=== PATIENT | male | born 1960 | race Caucasian/White ===

== ENCOUNTER 2020-01-28 14:39 | Emergency (ER) | payer MEDICARE, SELFPAY ==
[2020-01-28 14:43] VITALS: BP 131/61; PULSE 55; RESP 18; TEMP 36; O2SAT 93
--- NOTE | 2020-01-28 14:46 | ED.RECABL ---
HPI - Recheck/Abnormal Lab/Rx General Chief Complaint: Recheck/Abnormal Lab/Rx Stated Complaint: hypoglycemia Time Seen by Provider: 01/28/20 14:45 Source: patient Mode of arrival: EMS Limitations: no limitations History of Present Illness HPI narrative: Pt is a 60 y/o male who presents to the ED, via EMS, secondary to low BS. Per EMS, pt's BS was 22 upon their arrival. EMS states that they were called by PD after the pt's pinged his phone and was found on the side of the road. The pt was supposed to be going home but since he was late his pinged his phone and called 911. Pt states that he did not loose consciousness and that he pulled over to turn his GPS off. Pt was given glucagon IM by EMS and upon arrival to the ED, pt's BS was 95. He has an insulin pump and gets dialysis every Monday, Monday, and Monday. He is supposed to wear a continuous glucose monitor but he has not put it on yet. He did not eat anything since breakfast. 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 He denies ABD pain, back pain, CP, HOLDEN, or N/V. complaint: other (low BS) Returns today for: other (low BS) Context: other (low BS) Associated symptoms: none Treatments prior to arrival: other (glucagon IM) Related Data Home Medications Medication Instructions Recorded Confirmed aspirin 81 mg PO DAILY 10/09/19 10/09/19 atorvastatin 40 mg PO HS 10/09/19 10/09/19 brinzolamide [Azopt] 1 drp OPHTHALMIC (EYE) BID 10/09/19 10/09/19 cholecalciferol (vitamin D3) 125 mcg PO BID 10/09/19 10/09/19 [Vitamin D3] clopidogrel 75 mg PO DAILY 10/09/19 10/09/19 insulin regular hum U-500 conc See Rx Instructions .ROUTE .COMPLEX 10/09/19 10/09/19 [Humulin R U-500 (Conc) Insulin] latanoprost 1 drp OPHTHALMIC (EYE) QPM 10/09/19 10/09/19 levothyroxine 137 mcg PO DAILY 10/09/19 10/09/19 losartan 100 mg PO DAILY 10/09/19 10/09/19 metolazone 10 mg PO DAILY 10/09/19 10/09/19 [id number]-fish oil [[place]-3 1,000 cap PO DAILY 10/09/19 10/09/19 Fish Oil] omeprazole 40 mg PO BID 10/09/19 10/09/19 spironolactone [Aldactone] 25 mg PO DAILY 10/09/19 10/09/19 sucroferric oxyhydroxide 500 mg PO TID 10/09/19 10/09/19 vitamin B complex 1 cap PO DAILY 10/09/19 10/09/19 Allergies Allergy/AdvReac Type Severity Reaction Status Date / Time prednisone Allergy Unknown Swelling Verified 01/28/20 14:55 Review of Systems Review of Systems: Narrative: CARDIOVASCULAR: Denies chest pain. GASTROINTESTINAL: Denies abdominal pain, nausea, vomiting. MUSCULOSKELETAL: Denies back pain. NEUROLOGIC: Denies headache. All systems reviewed & are unremarkable except as noted in HPI and below PMFSH Past Medical History Medical History (Updated 01/28/20 @ 17:49 by Lashaun Murillo MD) Anemia CAD (coronary artery disease) CHF (congestive heart failure) Chronic hepatitis C with cirrhosis CKD (chronic kidney disease) GERD (gastroesophageal reflux disease) Glaucoma Hemodialysis patient HLD (hyperlipidemia) HTN (hypertension) Hypothyroid IDDM (insulin dependent diabetes mellitus) Peripheral neuropathy Pneumonia Sleep apnea Surgical History Surgical History (Updated 01/28/20 @ 15:48 by Darrick Bridges) H/O bilateral cataract extraction H/O heart artery stent History of cardiac catheterization Social History Social History (Updated 01/28/20 @ 15:49 by Darrick Bridges) Smoking status: Former smoker Exam Narrative: Exam Narrative: GENERAL: Well-appearing, well-nourished, and in no acute distress. HEAD: Normocephalic, atraumatic. EYES: PERRLA and EOMI. ENT: Nares clear, no rhinorrhea or epistaxis. Mucous membranes moist. NECK: Supple. CHEST: Clear to auscultation. No respiratory distress. HEART: Regular rate and rhythm. No murmur heard. Normal peripheral pulses. ABDOMEN: Soft, nontender, nondistended, normal active bowel sounds. Lt insulin pump EXTREMITIES: Normal range of motion. No edema. Lt hemodialysis catheter SKIN: Chronic venous stasis changes bilateral lower extre
[2020-01-28 14:48] LABS: Glucose Point of Care 95 (65-105)
[2020-01-28 15:35] LABS: Glucose Point of Care 64 (65-105)
[2020-01-28 15:47] LABS: Add Urine Microscopic? YES; Appearance Urine Clear (Clear); Bacteria Urine Trace /hpf; Bilirubin Urine Negative (Negative); Blood Urine 2+ (Negative); Color Urine Yellow (Yellow); Glucose Urine UA Negative (Negative); Ketones Urine Negative (Negative); Leukocyte Esterase Ur Trace LEU/UL (Negative); Mucus Urine Rare /lpf; Nitrate Urine Negative (Negative); Protein Urine 2+ mg/dL (Negative); Specific Grav Ur 1.012 (1.001-1.035); Squamous Epithelial Cell Urine Occasional /hpf (Few); Urobilinogen Urine Negative mg/dL (<2.0); WBC Urine 16-20 /hpf
[2020-01-28 16:06] LABS: Hematocrit 35.5 % (42.0-52.0); Hemoglobin 11.4 g/dL (14.0-18.0); Immature Platelet Fraction Pct 0.9 % (0.9-11.2); Mean Corpuscular HGB Conc 32.1 g/dl (32-36); Mean Corpuscular Hemoglobin 31.1 pg (26-34); Mean Platelet Volume 9.3 fl (7.4-10.4); Platelet Count Result 152 k/mm3 (150-375); Red Blood Count 3.66 M/mm3 (4.6-6.20); Red Cell Distribution Width 14.8 % (11.5-14.5); White Blood Count 16.4 K/mm3 (4.5-10.0)
[2020-01-28 16:17] LABS: Blood Urea Nitrogen 46 mg/dL (9-20); Calcium 8.1 mg/dL (8.4-10.2); Carbon Dioxide 26 mmol/L (22-30); Chloride 97 mmol/L (98-107); Estimated CRCL calculation 17 ml/min; Estimated Glomerular Filt Rate 10; Glucose 54 mg/dL (75-110); Potassium 3.5 mmol/L (3.4-5.0); Sodium 143 mmol/L (137-145)
[2020-01-28 16:28] LABS: Band Neutrophils Percent 4 % (0-6); Lymphocytes Absolute Manual 0.82 K/mm3 (1.1-4.5); Monocytes Absolute Manual 0.98 K/mm3 (0.1-0.90); Monocytes Percent Manual 6 % (3-9); Neutrophils Absolute Manual 14.59 K/mm3 (1.3-6.7); Neutrophils Percent Manual 85 % (46-73); Total Cells Counted 100
[2020-01-28 16:29] LABS: Platelet Estimate Adequate (Adequate)
[2020-01-28 16:30] LABS: Anisocytosis 1+ (NORMAL); Hypochromasia 1+ (NORMAL)
[2020-01-28 16:32] LABS: Glucose Point of Care 73 (65-105)
[2020-01-28 17:45] LABS: Glucose Point of Care 133 (65-105)
[2020-01-28 18:14] VITALS: BP 135/61; PULSE 67; RESP 16
== END 2020-01-28 18:30 | disposition home or self-care (01) ==
PROVIDERS: Emergency Provider Emergency Medicine
DX: E11.649 Type 2 diabetes mellitus with hypoglycemia without coma (principal); I25.10 Atherosclerotic heart disease of native coronary artery without angina pectoris; E11.22 Type 2 diabetes mellitus with diabetic chronic kidney disease; I13.0 Hypertensive heart and chronic kidney disease with heart failure and stage 1 through stage 4 chronic kidney disease, or unspecified chronic kidney disease; N18.6 End stage renal disease; I50.9 Heart failure, unspecified; B18.2 Chronic viral hepatitis C; K21.9 Gastro-esophageal reflux disease without esophagitis; Z99.2 Dependence on renal dialysis; E03.9 Hypothyroidism, unspecified; E11.42 Type 2 diabetes mellitus with diabetic polyneuropathy; Z98.42 Cataract extraction status, left eye; Z98.41 Cataract extraction status, right eye; Z87.891 Personal history of nicotine dependence; Z79.4 Long term (current) use of insulin; Z96.41 Presence of insulin pump (external) (internal)
CPT/HCPCS: 36415; 80048; 81001; 82948; 85025; 85055; 87077; 87086; 87088; 87186; 99283

== ENCOUNTER 2020-03-25 22:20 | Inpatient (IN) | payer MEDICARE, SELFPAY ==
--- NOTE | ~2020-03-25 | XR_ITS ---
EXAMINATION: XR chest 2V EXAM DATE: 03/25/2020 23:06 INDICATION: Shortness of breath cough fever. Cellulitis. TECHNIQUE: Frontal and lateral projections of the chest obtained and reviewed. Comparison is made to prior examination from 11/07/2016. FINDINGS: The lungs are clear. There are no pleural effusions. Cardiac silhouette is prominent but magnified on this AP technique. There is no pneumothorax suspected. The bones and soft tissues are unremarkable. There is no significant interval change. IMPRESSION: No acute cardiopulmonary findings. Reviewed, dictated and finalized at location G.
--- NOTE | ~2020-03-25 | CT_ITS ---
EXAMINATION: CT LE RT wo con EXAM DATE: 03/25/2020 23:17 INDICATION: Possible abscess. Right leg cellulitis. TECHNIQUE: Spiral CT right lower extremity was performed without contrast. Axial, coronal and sagit liz images were reviewed. The dose-length product (DLP) for this examination was 1577.94 mGy-cm. Tot al of 2536 images available at 1134 p.m. The exposure was tailored according to patient size (auto mA exposure control), and iterative reconstruction (ASIR) was used as additional dose reduction techniq ue. There is no prior study for comparison. FINDINGS: There is extensive right lower extremity subcutaneous edema, less amount of edema within t he fat planes between the calf musculature. No focal abscess or osseous erosion. There is no knee laila int effusion. Extensive subcutaneous soft tissue dystrophic calcifications, differential diagnosis including venous insufficiency dermatomyositis, CREST, lupus, trauma, chronic graft versus host disease. Could be fro m venous insufficiency given the significantly dilated greater saphenous varicosities. IMPRESSION: 1. Skin thickening, extensive subcutaneous edema. Consider cellulitis. 2. Subcutaneous chronic soft tissue calcifications, could be venous stasis related given the superfi cial varicosities. Reviewed, dictated and finalized at location G. IMPRESSION: 1. Skin thickening, extensive subcutaneous edema. Consider cellulitis. 2. Subcutaneous chronic soft tissue calcifications, could be venous stasis rel ated given the superficial varicosities.
--- NOTE | ~2020-03-25 | US_ITS ---
EXAMINATION: US venous doppler [facility] DATE: 03/26/2020 08:30 INDICATION: Right lower limb swelling. TECHNIQUE: Grayscale ultrasound images without and with compression and Doppler ultrasound images of the bilateral lower extremity veins were obtained. COMPARISON: None. FINDINGS: The visualized portions of right common femoral vein, profunda (deep) femoral vein, femoral vein, pop liteal vein, peroneal veins, posterior tibial veins, and greater saphenous vein outflow are patent. The visualized portions of left common femoral vein, profunda femoral vein, femoral vein, popliteal v ein, peroneal veins, posterior tibial veins, and greater saphenous vein outflow are patent. IMPRESSION: 1. No deep venous thrombosis. Reviewed, dictated and finalized at location A.
[2020-03-25 22:26] VITALS: BP 118/55; PULSE 81; RESP 26; TEMP 37.4; O2SAT 93
--- NOTE | 2020-03-25 22:26 | ED.SKABFB ---
HPI - Skin/Abscess/Foreign Bdy General Chief complaint: Skin/Abscess/Foreign Body Stated complaint: cellulitis Time Seen by Provider: 03/25/20 22:25 History of Present Illness HPI narrative: 60 yo male w/ h/o ESRD on dialysis, DM, CHF, valvular disease presents to the ED complaining of cellulitis. He has had issue with pain, swelling, and redness of the RLE for about the past 10 day. He was prescribed an antibiotic by his PCP, which seemed to help, but when the course ended his symptoms returned. Yesterday he had a fever up to 101. Additionally he had some nausea and vomiting today, which caused him to miss dialysis. He now feels SOB and feels that it is due to volume overload. Related Data Home Medications Medication Instructions Recorded Confirmed aspirin 81 mg PO DAILY 10/09/19 10/09/19 atorvastatin 40 mg PO HS 10/09/19 10/09/19 brinzolamide [Azopt] 1 drp OPHTHALMIC (EYE) BID 10/09/19 10/09/19 cholecalciferol (vitamin D3) 125 mcg PO BID 10/09/19 10/09/19 [Vitamin D3] clopidogrel 75 mg PO DAILY 10/09/19 10/09/19 insulin regular hum U-500 conc See Rx Instructions .ROUTE .COMPLEX 10/09/19 10/09/19 [Humulin R U-500 (Conc) Insulin] latanoprost 1 drp OPHTHALMIC (EYE) QPM 10/09/19 10/09/19 levothyroxine 137 mcg PO DAILY 10/09/19 10/09/19 losartan 100 mg PO DAILY 10/09/19 10/09/19 metolazone 10 mg PO DAILY 10/09/19 10/09/19 [id number]-epa-fish oil [[place]-3 1,000 cap PO DAILY 10/09/19 10/09/19 Fish Oil] omeprazole 40 mg PO BID 10/09/19 10/09/19 spironolactone [Aldactone] 25 mg PO DAILY 10/09/19 10/09/19 sucroferric oxyhydroxide 500 mg PO TID 10/09/19 10/09/19 vitamin B complex 1 cap PO DAILY 10/09/19 10/09/19 Allergies Allergy/AdvReac Type Severity Reaction Status Date / Time prednisone Allergy Unknown Swelling Verified 01/28/20 14:55 Review of Systems Review of Systems: All systems reviewed & are unremarkable except as noted in HPI and below Constitutional: Constitutional: Reports fever(s) Eyes: Eyes: Reports no additional eye complaints Cardiovascular: Cardiovascular: Denies chest pain, Reports leg edema and Reports dyspnea Respiratory: Respiratory: Denies cough and Reports dyspnea Gastrointestinal: Gastrointestinal: Reports nausea and Reports vomiting Integumentary/Breasts: Skin/Breast: Reports skin ulcer Neurologic: Reports numbness (feet and lower legs) [facility] Past Medical History Medical History Anemia CAD (coronary artery disease) CHF (congestive heart failure) Chronic hepatitis C with cirrhosis CKD (chronic kidney disease) GERD (gastroesophageal reflux disease) Glaucoma Hemodialysis patient HLD (hyperlipidemia) HTN (hypertension) Hypothyroid IDDM (insulin dependent diabetes mellitus) Peripheral neuropathy Pneumonia Sleep apnea Surgical History Surgical History H/O bilateral cataract extraction H/O heart artery stent History of cardiac catheterization Social History Social History Smoking status: Former smoker Gender identity (if verbalized by the patient): Male Exam Const: General: cooperative, alert and ill appearing chronically; No acute distress Nutritional Appearance: obese morbidly obese Orientation/consciousness: patient oriented x3 Limitations: no limitations HENMT: Head: normal to inspection Neck: Neck: normal visual inspection Resp: Effort & Inspection: tachypneic Auscultation: clear to auscultation bilaterally Cardio: Rate: regular rate Rhythm: regular rhythm Heart sounds: Murmur heart sound present GI: Inspection: distended GI Palp: No Tenderness to palpation present (GI) Skin: Lesions: lesion noted (shallow ulcer to the dorsum of the right foot) Neuro: General: patient oriented x3, no focal motor deficits and CN's II-XI intact bilaterally Cognition (Neuro): normal cognition Speech:
[2020-03-25 23:09] LABS: Basophils Percent Auto 0.2 % (0.2-1.2); Eosinophils Absolute Auto 0.3 K/mm3 (0-0.3); Eosinophils Percent Auto 1.6 % (0-4.4); Hematocrit 26.4 % (42.0-52.0); Hemoglobin 8.1 g/dL (14.0-18.0); Immature Granulocyte Absolute 0.07 K/mm3 (0.00-0.031); Immature Granulocyte Percent A 0.4 % (0-0.5); Lymphocytes Absolute Auto 0.93 K/mm3 (0.9-3.2); Lymphocytes Percent Auto 5.7 % (18.3-44.2); Mean Corpuscular HGB Conc 30.7 g/dl (32-36); Mean Corpuscular Hemoglobin 30.3 pg (26-34); Mean Corpuscular Volume 98.9 fl (80-100); Mean Platelet Volume 9.5 fl (7.4-10.4); Monocytes Absolute Auto 1.2 K/mm3 (0.1-0.6); Monocytes Percent Auto 7.5 % (2.6-8.5); Neutrophils Absolute Auto 13.7 K/mm3 (1.3-6.7); Neutrophils Percent Auto 84.6 % (45.5-73.1); Platelet Count Result 163 k/mm3 (150-375); Red Blood Count 2.67 M/mm3 (4.6-6.20); White Blood Count 16.2 K/mm3 (4.5-10.0)
[2020-03-25 23:20] VITALS: BP 143/60; PULSE 77; RESP 21; O2SAT 93
[2020-03-25 23:20] LABS: INR 1.2; Prothrombin Time 15.2 Seconds (11.1-14.7)
[2020-03-25 23:21] LABS: Partial Thromboplastin Time 36.8 SECONDS (22.3-36.8)
[2020-03-25 23:23] LABS: Lactic Acid Reflex 1.7 mmol/L (0.7-2.1)
[2020-03-25 23:37] LABS: Alanine Aminotransferase 14 U/L (4-50); Albumin Level 4.3 g/dL (3.5-5.1); Alkaline Phosphatase 98 U/L (38-126); Aspartate Amino Transferase 22 U/L (17-59); Bilirubin,Total 0.8 mg/dL (0.2-1.3); Blood Urea Nitrogen 78 mg/dL (9-20); CRP 24.2 mg/dL (<1.0); Carbon Dioxide 21 mmol/L (22-30); Chloride 96 mmol/L (98-107); Estimated CRCL calculation 11 ml/min; Estimated Glomerular Filt Rate 6; Glucose 189 mg/dL (75-110); Potassium 5.2 mmol/L (3.4-5.0); Sodium 134 mmol/L (137-145)
[2020-03-25] MEDS: FUROSEMIDE INJ 100 MG/10 ML VIAL 80 MG IV PUSH (23:42)
[2020-03-26] VITALS (26 sets, daily range): BP systolic 85–151; BP diastolic 22–74; PULSE 65–84; RESP 16–25; TEMP 36–37.1; O2SAT 92–96; BMI 44.0
[2020-03-26] MEDS: MORPHINE SULFATE 2 MG/ML INJ IV PUSH ×2 (01:27→04:40)
--- NOTE | 2020-03-26 02:12 | ADMGEN ---
This patient, Evaristo Roberto, was admitted to Medical Room 340-01. Patient/family oriented to hospital policies and general routines including ID bracelet, bed and alarms, visiting hours, pain management, procedures, bathroom and other care routines, personal items, smoking policy, room service/diet, and visiting hours. Valuables list has been completed. Information on how to activate the Rapid Response Team has been discussed. Patient/Family are encouraged to report perceived risks to care and to ask questions if they do not understand what they are told or what they should do.
--- NOTE | 2020-03-26 04:37 | PM.IMHP ---
H&P: HPI History of Present Illness Chief complaint: B/L leg pain Narrative: This is a 60 year old morbidly obese diabetic Caucsian male with known ESRD on M/W/F and ultrafiltration on Sat who presented to the hospital with a complaint of worsening B/L LE pain. The patient has had increased LE swelling, redness and pain since the beginning of February. He complains of pain of both lower extremities but has noticed that he has worse swelling and pain of his right lower extremity. He has both swelling and pain both above and below the knees. He completed a course of Bactrim earlier in the month for possible cellulitis. He reports minimal improvement. He believes he had fever yesterday of 101.4, nausea and experienced dry heaving. He missed his dialysis yesterday. He is known to make a little more than a cup of urine daily. The patient was evaluated in the ER [facility] and found to have an elevated WBC of 16,200. CT scan of RLE demonstrated skin thickening, extensive subcutaneous edema as well as subcutaneous chronic soft tissue calcifications, could be venous stasis related given the superficial varicosities. The patient was treated for presumed cellulitis with IV antibiotics. On my encounter with the patient [facility] he states that the redness of his LEs has not really worsened recently but the swelling and pain of his RLE is what has been causing him the most amount of discomfort. He denies any cough, shortness of breath, chest pain, abdominal pain, dysuria, hematuria, diarrhea or focal neurological deficits. Review of Systems Review of Systems: All systems reviewed & are unremarkable except as noted in HPI and below PMFSH Past Medical History Medical History Anemia CAD (coronary artery disease) CHF (congestive heart failure) Chronic hepatitis C with cirrhosis CKD (chronic kidney disease) Edema of lower leg due to peripheral venous insufficiency GERD (gastroesophageal reflux disease) Glaucoma Hemodialysis patient HLD (hyperlipidemia) HTN (hypertension) Hypothyroid IDDM (insulin dependent diabetes mellitus) Peripheral neuropathy Pneumonia Sleep apnea Surgical History Surgical History H/O bilateral cataract extraction H/O heart artery stent History of cardiac catheterization Family History Family History Father Congestive heart failure Hypertension Lung cancer Mother History of blood clots Breast cancer Sibling Diabetes mellitus Sibling Diabetes mellitus Sibling Breast cancer Brain tumor (benign) Social History Social History Smoking packs per day: 1 Smoking cigarettes per day: 20.0 Years smoked: 10 Smoking pack-years: 10.00 Smoking status: Former smoker Second hand tobacco smoke exposure: Yes Alcohol intake: never Substance use: never Gender identity (if verbalized by the patient): Male Spiritual care concerns: No Agree to blood products: Yes Meds Home Medications and Allergies Home Medications Medication Instructions Recorded Confirmed Type aspirin 81 mg PO DAILY 10/09/19 03/26/20 History atorvastatin 80 mg PO HS 10/09/19 03/26/20 History brinzolamide [Azopt] 1 drp OPHTHALMIC (EYE) BID 10/09/19 03/26/20 History cholecalciferol (vitamin D3) 250 mcg PO DAILY 10/09/19 03/26/20 History [Vitamin D3] clopidogrel 75 mg PO DAILY 10/09/19 03/26/20 History insulin regular hum U-500 conc See Rx Instructions .ROUTE .COMPLEX 10/09/19 03/26/20 History [Humulin R U-500 (Conc) Insulin] latanoprost 1 drp OPHTHALMIC (EYE) QPM 10/09/19 03/26/20 History losartan 100 mg PO DAILY 10/09/19 03/26/20 History gzjdy-[id number]-vka-epa-fish oil [[place]-3 1,000 cap PO DAILY 10/09/19 03/26/20 History Fish Oil] omeprazole 40 mg PO BID 10/09/19 03/26/20 History vitamin B complex 1 cap PO DAILY
[2020-03-26 05:00] LABS: Glucose Point of Care 195 (65-105)
[2020-03-26] MEDS: LEVOTHYROXINE SODIUM 150 MCG TABLET PO (05:58)
[2020-03-26 06:00] LABS: Basophils Absolute Auto 0.1 K/mm3 (0.0-0.1); Basophils Percent Auto 0.3 % (0.2-1.2); Eosinophils Absolute Auto 0.3 K/mm3 (0-0.3); Eosinophils Percent Auto 1.5 % (0-4.4); Hematocrit 25.4 % (42.0-52.0); Hemoglobin 7.9 g/dL (14.0-18.0); Immature Granulocyte Percent A 0.6 % (0-0.5); Lymphocytes Absolute Auto 1.04 K/mm3 (0.9-3.2); Lymphocytes Percent Auto 6.3 % (18.3-44.2); Mean Corpuscular HGB Conc 31.1 g/dl (32-36); Mean Corpuscular Hemoglobin 30.6 pg (26-34); Mean Corpuscular Volume 98.4 fl (80-100); Mean Platelet Volume 9.4 fl (7.4-10.4); Monocytes Absolute Auto 1.3 K/mm3 (0.1-0.6); Monocytes Percent Auto 7.9 % (2.6-8.5); Neutrophils Absolute Auto 13.8 K/mm3 (1.3-6.7); Neutrophils Percent Auto 83.4 % (45.5-73.1); Platelet Count Result 157 k/mm3 (150-375); Red Blood Count 2.58 M/mm3 (4.6-6.20); Red Cell Distribution Width 15.3 % (11.5-14.5); White Blood Count 16.6 K/mm3 (4.5-10.0)
[2020-03-26 07:25] LABS: Blood Urea Nitrogen 82 mg/dL (9-20); Carbon Dioxide 24 mmol/L (22-30); Chloride 95 mmol/L (98-107); Estimated CRCL calculation 10 ml/min; Estimated Glomerular Filt Rate 5; Glucose 184 mg/dL (75-110); Sodium 133 mmol/L (137-145)
[2020-03-26 07:47] LABS: Glucose Point of Care 122 (65-105)
[2020-03-26] MEDS: BRINZOLAMIDE 1% OPHTH SUSP 10 ML 1 DROP EACH EYE ×2 (08:51→19:59)
[2020-03-26] MEDS: OMEGA 3 POLYUNSAT FATTY ACIDS 1 GM CAP PO (08:51)
[2020-03-26] MEDS: VITAMIN B COMPLEX CAPSULE 1 CAP PO (08:51)
[2020-03-26] MEDS: CLOPIDOGREL BISULFATE 75 MG TABLET PO (08:51)
[2020-03-26] MEDS: PANTOPRAZOLE 40 MG TABLET PO ×2 (08:51→20:00)
[2020-03-26] MEDS: CHOLECALCIFEROL 1,000 UNIT TABLET 2000 UNITS PO (08:51)
[2020-03-26] MEDS: LOSARTAN POTASSIUM 100 MG TABLET PO (08:51)
[2020-03-26] MEDS: ASPIRIN 81 MG CHEWABLE TABLET PO (08:51)
--- NOTE | 2020-03-26 11:24 | PC.NURSE ---
Patient blood sugar low this morning. Pump is on hold and snacks are being given. Patient did not want the glucose gel.
--- NOTE | 2020-03-26 14:11 | PM.IMPN ---
Progress Note: A&P Assessment and Plan (1) Cellulitis: Qualifiers: Laterality: right Site of cellulitis: extremity Site of cellulitis of extremity: lower extremity Qualified Code(s): L03.115 - Cellulitis of right lower limb Code(s): L03.90 - Cellulitis, unspecified Status: Acute Assessment and Plan: Patient presented with increased swelling, pain, redness to his lower extremities which has been going on for about 1 month. He states that he was placed on 1 week of Bactrim antibiotics with improvement of his symptoms but after discontinuing the medication his symptoms returned which brought him into the emergency room. Patient's lower extremities looks mostly like peripheral vascular disease but he does have some slight erythema to his proximal right lower extremity as well as an open wound to his dorsal right foot. Will continue monitoring patient's blood cultures. Will obtain a wound culture of his right foot. Today the patient reports feeling better and having no pain to his lower extremities. Continue with IV antibiotics of Primaxin and vancomycin at this time. Pain control as needed while hospitalized. (2) Edema of lower leg due to peripheral venous insufficiency: Code(s): I87.2 - Venous insufficiency (chronic) (peripheral); R60.0 - Localized edema Status: Chronic Assessment and Plan: The patient appears to have chronic LE edema from peripheral vascular disease. Venous doppler U/S of RLE was negative for DVT. Will continue with dialysis and his home Bumex. Continue monitor. (3) Wound of right foot: Code(s): S91.301A - Unspecified open wound, right foot, initial encounter Status: Acute Assessment and Plan: Chronic wound to dorsum of right foot which he has been monitoring for years and had seen [facility] for in the past. Will obtain wound cultures to rule out acute infection. Wound nurses consulted for further evaluation and wound care management. (4) ESRD (end stage renal disease) on dialysis: Code(s): N18.6 - End stage renal disease; Z99.2 - Dependence on renal dialysis Status: Chronic Assessment and Plan: He follows up with Dr. Johnnie Diaz Nephrology. He has dialysis Monday/Monday/Monday and ultrafiltration on Saturdays. Patient's creatinine today is 10.2 and BUN 82. Nephrology has been consulted and appreciate their recommendations. (5) Leukocytosis: Qualifiers: Leukocytosis type: unspecified Qualified Code(s): D72.829 - Elevated white blood cell count, unspecified Code(s): D72.829 - Elevated white blood cell count, unspecified Status: Chronic Assessment and Plan: The patient has had chronic leukocytosis. His prior ER visit from 01/28/2020 showed leukocytosis at 16.4, when he was here for hypoglycemia. Leukocytosis today is 16.6 K. he has remained afebrile, non tachycardic, normal oxygenation, respiratory rate and blood pressure. Will also check a urine culture since his last ER visit showed a UTI. He denies any urinary symptoms at this time. Chest x-ray shows no acute cardiopulmonary abnormality and on arrival. Will continue IV antibiotics at this time and continue monitoring his legs for improvement. (6) Chronic anemia: Code(s): D64.9 - Anemia, unspecified Status: Chronic Assessment and Plan: Likely seconadry to chronic kidney disease and need for dialysis. Hemoglobin was 7.9 and hematocrit was 25.4%. Stable from arrival. No signs of acute blood loss. Monitor H/H, transfuse prn. (7) Hyperkalemia: Code(s): E87.5 - Hyperkalemia Status: Acute Assessment and
--- NOTE | 2020-03-26 16:34 | PM.PNNEP ---
Progress Note: A&P Assessment and Plan (1) End stage renal disease: Code(s): N18.6 - End stage renal disease Status: Chronic Assessment and Plan: HD today (since missed treatment yesterday) and then tomorrow to get back on M/W/F/Sat schedule follow trend of electrolytes, volume status, and clearance FULL CONSULT TO FOLLOW Subjective Date/time seen: 03/26/20 16:34 Tolerating dialysis at the time of my visit (seen on HD at ~ 4:15PM); no apparent distress voiced at this time; no events since admission; feels relatively well. Exam Narrative: Exam Narrative: General: WD/WN male in NAD Heart: normal S1 and S2; no rub Lungs: clear to auscultation Abdomen: obese, nontender, nondistended, positive bowel sounds Extremities: no cyanosis or clubbing; no edema Skin: chronic stasis dermatitis with right foot dressings in place Objective Data Vital Signs Vital Signs: Vital Signs Temp Pulse Resp BP Pulse Ox 03/26/20 04:59 36.8 C 65 18 121/45 L 92 03/26/20 02:04 37.1 C 79 22 H 117/41 L 94 03/26/20 00:22 79 24 H 113/41 L 96 03/26/20 00:15 78 25 H 92 03/26/20 00:02 79 20 113/41 L 93 03/26/20 00:00 23 H 95 03/25/20 23:20 77 21 H 143/60 H 93 03/25/20 22:26 37.4 C 81 26 H 118/55 L 93 Intake/Output Intake/Output: Intake & Output 03/23/20 03/24/20 03/25/20 03/26/20 23:59 23:59 23:59 23:59 Intake Total 1270 Output Total 0 Balance 1270 Meds/Results Medications: Active Medications Generic Name Dose Route Start Last Admin Trade Name Freq PRN Reason Stop Dose Admin Acetaminophen 650 mg 03/26/20 04:33 Tylenol Tablet PO Q4H PRN Mild Pain (1-3) or Fever Aspirin 81 mg 03/26/20 08:00 03/26/20 08:51 Aspirin Chewable PO 81 mg DAILY@0800 [facility] Administration Atorvastatin Calcium 80 mg 03/26/20 21:00 Lipitor PO HS [facility] Brinzolamide 1 drop 03/26/20 09:00 03/26/20 08:51 Azopt Ophth Rossi EACH EYE 1 drop BID NATHANIEL Administration Bumetanide 1 - 2 mg 03/26/20 04:36 Bumex Po BY MOUTH DAILY PRN Urinary Retention Clopidogrel Bisulfate 75 mg 03/26/20 09:00 03/26/20 08:51 Plavix PO 75 mg DAILY NATHANIEL Administration Dextrose 12.5 gm 03/26/20 04:35 Dextrose 50% Syringe IV PUSH PRN PRN Hypoglycemia Protocol Epoetin [place] 10,000 units 03/26/20 19:00 Epogen IV PUSH 03/26/20 19:01 ONCE ONE Fish Oil 1 gm 03/26/20 09:00 03/26/20 08:51 Lovaza PO 1 gm DAILY NATHANIEL Administration Glucagon 1 mg 03/26/20 04:35 Glucagon For Inj IM PRN PRN Hypoglycemia Protocol Glucose 15 gm 03/26/20 04:35 Glutose 15 PO PRN PRN Hypoglycemia Protocol Heparin Sodium (Porcine) 5,000 units 03/26/20 09:00 03/26/20 08:54 Heparin Sodium SUB-Q Not Given Q12HR [facility] Dextrose 1,000 mls @ 100 mls/hr 03/26/20 04:35 Dextrose 5% 1,000 Ml IVPB PRN PRN Hypoglycemia Protocol Vancomycin HCl 1,500 mg in 500 mls @ 333.333 mls/hr 03/26/20 05:49 Vancomycin 1,500 Mg/D5w 500 Ml IVPB PRN PRN Drug levels Imipenem/Cilastatin Sodium 500 mg in 100 mls @ 300 mls/hr 03/26/20 08:55 Primaxin 500 Mg/D5w 100 Ml IVPB Q6H [facility] Albumin Human 50 mls @ 999 mls/hr 03/26/20 10:08 Albutein IVPB 04/25/20 10:09 Q10M PRN HYPOTENSION Insulin Aspart 3 - 6 units 03/26/20 08:00 03/26/20 11:22 Novolog SUB-Q Not Given TIDWM [facility] Protocol Latanoprost 1 drop 03/26/20 18:00 Xalatan EACH EYE QPM [facility] Levothyroxine Sodium 150 mcg 03/26/20 06:30 03/26/20 05:58 Synthroid PO 150 mcg DAILY@0630 [facility]ATH[facility]EL Administration Losartan Potassium 100 mg 03/26/20 09:00 03/26/20 08:51 Cozaar PO 100 mg DAILY [facility] Administration Miconazole Nitrate 1 applic 03/26/20 09:00 Miconazole Nitrate 2% Cream TOPICAL DAILY [facility] Non-Formulary Medication 500 mg 03/26/20 09:00
[2020-03-26 17:11] LABS: Hepatitis B Surface Antigen Negative (Negative)
[2020-03-26 17:28] LABS: Hepatitis B Surface Anti Res Negative
--- NOTE | 2020-03-26 19:49 | PC.NURSE ---
Patient received from Dialysis at 9.
[2020-03-26 19:58] LABS: Glucose Point of Care 110 (65-105)
[2020-03-26] MEDS: MICONAZOLE NITRATE 2% CREAM 30 GM TUBE 1 APPLIC TOPICAL (19:59)
[2020-03-26] MEDS: LATANOPROST 0.005% OP SOLN 2.5 ML BTL 1 DROP EACH EYE (20:00)
[2020-03-26] MEDS: ATORVASTATIN 40 MG TABLET 80 MG PO (20:00)
[2020-03-26 21:56] LABS: Vancomycin Random 8.6 ug/mL (10-20)
[2020-03-27] VITALS (20 sets, daily range): BP systolic 113–174; BP diastolic 44–84; PULSE 67–87; RESP 16–20; TEMP 36–37.3; O2SAT 92–100; BMI 44.0
[2020-03-27] MEDS: ACETAMINOPHEN 325 MG TABLET 650 MG PO (00:18)
[2020-03-27 00:50] LABS: Add Urine Microscopic? YES; Appearance Urine Cloudy (Clear); Bilirubin Urine Negative (Negative); Blood Urine 3+ (Negative); Color Urine Amber (Yellow); Glucose Urine UA 2+ mg/dL (Negative); Ketones Urine Negative (Negative); Leukocyte Esterase Ur 3+ LEU/UL (Negative); Mucus Urine Rare /lpf; Nitrate Urine Negative (Negative); Protein Urine 2+ mg/dL (Negative); RBC Urine >75 /hpf (0-2); Specific Grav Ur 1.016 (1.001-1.035); Squamous Epithelial Cell Urine Moderate /hpf (Few); Urobilinogen Urine Negative mg/dL (<2.0); WBC Clumps Urine Present /HPF; WBC Urine >75 /hpf
[2020-03-27] MEDS: IMIPENEM/CILASTATIN SODIUM 200 MG in DEXTROSE 5% 100 ML 300 ML IVPB ×4 (02:50→21:04)
[2020-03-27 05:15] LABS: Basophils Percent Auto 0.3 % (0.2-1.2); Eosinophils Absolute Auto 0.3 K/mm3 (0-0.3); Eosinophils Percent Auto 2.5 % (0-4.4); Hemoglobin 7.8 g/dL (14.0-18.0); Immature Granulocyte Absolute 0.07 K/mm3 (0.00-0.031); Immature Granulocyte Percent A 0.6 % (0-0.5); Lymphocytes Absolute Auto 0.77 K/mm3 (0.9-3.2); Lymphocytes Percent Auto 6.3 % (18.3-44.2); Mean Corpuscular HGB Conc 31.2 g/dl (32-36); Mean Corpuscular Hemoglobin 31.1 pg (26-34); Mean Corpuscular Volume 99.6 fl (80-100); Mean Platelet Volume 9.5 fl (7.4-10.4); Monocytes Absolute Auto 1.2 K/mm3 (0.1-0.6); Monocytes Percent Auto 10.2 % (2.6-8.5); Neutrophils Absolute Auto 9.8 K/mm3 (1.3-6.7); Neutrophils Percent Auto 80.1 % (45.5-73.1); Platelet Count Result 162 k/mm3 (150-375); Red Blood Count 2.51 M/mm3 (4.6-6.20); Red Cell Distribution Width 15.5 % (11.5-14.5); White Blood Count 12.2 K/mm3 (4.5-10.0)
[2020-03-27] MEDS: LEVOTHYROXINE SODIUM 150 MCG TABLET PO (05:30)
[2020-03-27 05:38] LABS: Albumin Level 3.8 g/dL (3.5-5.1); Blood Urea Nitrogen 43 mg/dL (9-20); Calcium 7.9 mg/dL (8.4-10.2); Carbon Dioxide 26 mmol/L (22-30); Chloride 95 mmol/L (98-107); Estimated CRCL calculation 14 ml/min; Estimated Glomerular Filt Rate 8; Glucose 249 mg/dL (75-110); Phosphorus 6.3 mg/dL (2.5-4.5); Sodium 133 mmol/L (137-145)
[2020-03-27 05:47] LABS: CRP 25.3 mg/dL (<1.0)
[2020-03-27 06:44] LABS: Potassium 4.7 mmol/L (3.4-5.0)
[2020-03-27 07:29] LABS: Glucose Point of Care 213 (65-105)
[2020-03-27] MEDS: LOSARTAN POTASSIUM 100 MG TABLET PO (08:04)
[2020-03-27] MEDS: CLOPIDOGREL BISULFATE 75 MG TABLET PO (08:04)
[2020-03-27] MEDS: OMEGA 3 POLYUNSAT FATTY ACIDS 1 GM CAP PO (08:04)
[2020-03-27] MEDS: BUMETANIDE 1 MG TABLET BY MOUTH (08:05)
[2020-03-27] MEDS: MICONAZOLE NITRATE 2% CREAM 30 GM TUBE 1 APPLIC TOPICAL (08:05)
[2020-03-27] MEDS: CHOLECALCIFEROL 1,000 UNIT TABLET 2000 UNITS PO (08:06)
[2020-03-27] MEDS: ASPIRIN 81 MG CHEWABLE TABLET PO (08:07)
[2020-03-27] MEDS: BRINZOLAMIDE 1% OPHTH SUSP 10 ML 1 DROP EACH EYE ×2 (08:07→16:42)
[2020-03-27] MEDS: PANTOPRAZOLE 40 MG TABLET PO ×2 (08:08→16:43)
[2020-03-27] MEDS: VITAMIN B COMPLEX CAPSULE 1 CAP PO (08:08)
[2020-03-27] MEDS: HEPARIN SODIUM 5,000 UNITS/ML VIAL 5000 UNITS SUB-Q ×2 (09:36→21:04)
--- NOTE | 2020-03-27 10:53 | PM.IMPN ---
Progress Note: A&P Assessment and Plan (1) Cellulitis: Qualifiers: Laterality: right Site of cellulitis: extremity Site of cellulitis of extremity: lower extremity Qualified Code(s): L03.115 - Cellulitis of right lower limb Code(s): L03.90 - Cellulitis, unspecified Status: Acute Assessment and Plan: Patient presented with increased swelling, pain, redness to his lower extremities which has been going on for about 1 month. He states that he was placed on 1 week of Bactrim antibiotics with improvement of his symptoms but after discontinuing the medication his symptoms returned which brought him into the emergency room. Patient's lower extremities looks mostly like peripheral vascular disease but he does have some slight erythema to his proximal right lower extremity as well as an open wound to his dorsal right foot. Blood cultures shows no growth at this time. Today the patient reports feeling better and having no pain to his lower extremities. Continue with IV antibiotics of Primaxin and vancomycin at this time. Pain control as needed while hospitalized. (2) Edema of lower leg due to peripheral venous insufficiency: Code(s): I87.2 - Venous insufficiency (chronic) (peripheral); R60.0 - Localized edema Status: Chronic Assessment and Plan: The patient appears to have chronic LE edema from peripheral vascular disease. Venous doppler U/S of RLE was negative for DVT. Will continue with dialysis and his home Bumex. Will also fluid restrict him to 2 liters of fluid per day. Recommend the patient to elevate his legs while sitting down to improve his bilateral leg swelling. Continue monitor. (3) Wound of right foot: Code(s): S91.301A - Unspecified open wound, right foot, initial encounter Status: Acute Assessment and Plan: Chronic wound to dorsum of right foot which he has been monitoring for years and had seen [place] [facility] for in the past. Wound nurses evaluated the patient and does not feel that his right foot wound is infected and they recommend putting miconazole cream and dressing over it. Wound culture of his right foot gram stain shows no white blood cells seen, moderate Gram-negative bacilli. Continue monitoring culture and sensitivities. Wound nurses consulted for further evaluation and wound care management. (4) ESRD (end stage renal disease) on dialysis: Code(s): N18.6 - End stage renal disease; Z99.2 - Dependence on renal dialysis Status: Chronic Assessment and Plan: He follows up with Dr. Johnnie Diaz [facility]. He has dialysis Monday/Monday/Monday and ultrafiltration on Saturdays. Patient's creatinine today improved after dialysis to 6.90 and BUN 43. Nephrology has been consulted and appreciate their recommendations. (5) Leukocytosis: Qualifiers: Leukocytosis type: unspecified Qualified Code(s): D72.829 - Elevated white blood cell count, unspecified Code(s): D72.829 - Elevated white blood cell count, unspecified Status: Chronic Assessment and Plan: The patient has had chronic leukocytosis. His prior ER visit from 01/28/2020 showed leukocytosis at 16.4, when he was here for hypoglycemia. Leukocytosis improved today is 12.2 K. He has remained afebrile, non tachycardic, normal oxygenation, respiratory rate and blood pressure. Urine is suspicious for UTI. He denies any urinary symptoms at this time. Will continue monitoring Urine Culture results. Chest x-ray shows no acute cardiopulmonary abnormality and on arrival. Will continue IV antibiotics at this time and continue monitoring his legs for improvement. (6) Chronic anemia: Code(s): D64.9 - Anemi
[2020-03-27 11:28] LABS: Glucose Point of Care 258 (65-105)
--- NOTE | 2020-03-27 12:20 | PC.NURSE ---
TO Dialysis via bed.
--- NOTE | 2020-03-27 13:58 | PM.CNNEP ---
Assessment and Plan Assessment and plan (1) End stage renal disease: Code(s): N18.6 - End stage renal disease Status: Chronic (2) Wound of right foot: Code(s): S91.301A - Unspecified open wound, right foot, initial encounter Status: Acute (3) Cellulitis: Qualifiers: Laterality: right Site of cellulitis: extremity Site of cellulitis of extremity: lower extremity Qualified Code(s): L03.115 - Cellulitis of right lower limb Code(s): L03.90 - Cellulitis, unspecified Status: Acute (4) IDDM (insulin dependent diabetes mellitus): Status: Chronic (5) HTN (hypertension): Qualifiers: Hypertension type: unspecified Qualified Code(s): I10 - Essential (primary) hypertension Code(s): I10 - Essential (primary) hypertension Status: Acute Assessment and Plan: . Additional Plan Evaristo has end-stage renal disease has currently receiving dialysis today to maintain his outpatient dialysis schedule. I will plan for dry ultrafiltration tomorrow in order to maintain stability in his volume status and ensure that his CKD parameters are maintained. He is currently receiving antibiotics on the assumption of the right lower extremity cellulitis but is difficult to assess how much of this is true infection versus just chronic skin changes associated with his chronic venous stasis in general. I would follow the trend of his cultures and white blood cell count to assess if more aggressive antibiotic therapy is needed or if further intervention is required. While he remains hospitalized, I will continue dialysis as his outpatient schedule in effort to maintain stability is electrolytes, volume status, and clearance. I will continue follow patient with you while she remains hospitalized and make further further recommendations based on his hospital course. Thank you for allowing me to participate in the care this patient. History of Present Illness Reason for Consult Consult date: 03/27/20 Reason for consult: end stage renal disease Chief Complaint Chief complaint: Diabetic cellulitis History of Present Illness Narrative: The patient is a 60 year male with a past medical history as outlined below who presented to [facility] ER with complaints of bilateral lower extremity pain. The patient has noted increased lower extremity swelling, erythema, and pain for about the last 2-3 weeks if not longer. Although both of his lower extremities have these issues, it would seem that his right lower extremity seems to be somewhat worse. Apparently, there was a concern by other physicians involved in his care that this may be an early sign of cellulitis so he was started on oral antibiotic therapy but has noted minimal improvement with this intervention. The day prior to admission, he apparently had a fever of 101.4 and associated with nausea and dry heaves. These new symptoms prompted him to come to the emergency room for further evaluation and therapy. Workup and evaluation emergency room demonstrated the patient to have routine labs consistent with his known history of end-stage renal disease but his CBC did demonstrate an elevated white blood cell count of 16.[address] he subsequently had a CT scan of his right lower extremity which demonstrated extensive subcutaneous edema and subcutaneous chronic soft tissue calcifications thought to be related to chronic venous changes. Given the high index of suspicion for possible cellulitis, appropriate cultures were obtained and he was started on IV antibiotic therapy with admission to the hospital. Renal consultation was requested due to his end-stage renal disease. The patient only dialyzes on a Monday, Monday, Monday, Monday dialysis schedule (with the Monday reserved for just dry ultrafiltration) at [facility] under the care of Dr. Juan Antonio Blair. The patient has been doing reasonably well on hanna
[2020-03-27] MEDS: EPOETIN ALFA 10,000 UNITS/ML VIAL 20000 UNITS IV PUSH (14:01)
[2020-03-27 16:47] LABS: Glucose Point of Care 118 (65-105)
[2020-03-27] MEDS: LATANOPROST 0.005% OP SOLN 2.5 ML BTL 1 DROP EACH EYE (16:47)
[2020-03-27 18:43] LABS: Vancomycin Random 14.8 ug/mL (10-20)
[2020-03-27] MEDS: ATORVASTATIN 40 MG TABLET 80 MG PO (20:58)
[2020-03-27 21:53] LABS: Glucose Point of Care 115 (65-105)
[2020-03-28] VITALS (16 sets, daily range): BP systolic 121–148; BP diastolic 49–70; PULSE 64–75; RESP 16–18; TEMP 36–37; O2SAT 93–98
[2020-03-28] MEDS: IMIPENEM/CILASTATIN SODIUM 200 MG in DEXTROSE 5% 100 ML 300 ML IVPB (02:39)
[2020-03-28] MEDS: LEVOTHYROXINE SODIUM 150 MCG TABLET PO (06:22)
[2020-03-28 06:25] LABS: Basophils Absolute Auto 0.1 K/mm3 (0.0-0.1); Basophils Percent Auto 0.6 % (0.2-1.2); Eosinophils Absolute Auto 0.4 K/mm3 (0-0.3); Eosinophils Percent Auto 3.8 % (0-4.4); Hematocrit 27.4 % (42.0-52.0); Hemoglobin 8.5 g/dL (14.0-18.0); Immature Granulocyte Absolute 0.07 K/mm3 (0.00-0.031); Immature Granulocyte Percent A 0.6 % (0-0.5); Lymphocytes Absolute Auto 0.85 K/mm3 (0.9-3.2); Lymphocytes Percent Auto 7.4 % (18.3-44.2); Mean Platelet Volume 9.4 fl (7.4-10.4); Monocytes Absolute Auto 1.4 K/mm3 (0.1-0.6); Monocytes Percent Auto 12.2 % (2.6-8.5); Neutrophils Absolute Auto 8.6 K/mm3 (1.3-6.7); Neutrophils Percent Auto 75.4 % (45.5-73.1); Platelet Count Result 216 k/mm3 (150-375); Red Blood Count 2.74 M/mm3 (4.6-6.20); Red Cell Distribution Width 15.5 % (11.5-14.5); White Blood Count 11.4 K/mm3 (4.5-10.0)
[2020-03-28 06:50] LABS: Blood Urea Nitrogen 34 mg/dL (9-20); Calcium 8.2 mg/dL (8.4-10.2); Carbon Dioxide 24 mmol/L (22-30); Chloride 99 mmol/L (98-107); Estimated CRCL calculation 17 ml/min; Estimated Glomerular Filt Rate 10; Glucose 183 mg/dL (75-110); Phosphorus 5.8 mg/dL (2.5-4.5); Potassium 5.1 mmol/L (3.4-5.0); Sodium 135 mmol/L (137-145)
[2020-03-28 07:00] LABS: CRP 19.4 mg/dL (<1.0)
--- NOTE | 2020-03-28 07:00 | PC.NURSE ---
Patient blood glucose was 148. Patient administered 8 units and the basal rate was 0.8
[2020-03-28 07:56] LABS: Glucose Point of Care 177 (65-105)
--- NOTE | 2020-03-28 09:15 | PC.NURSE ---
Patient transferred to dialysis. Report given to RAVINDER Laura. All questions answered.
--- NOTE | 2020-03-28 11:06 | PM.PNNEP ---
Progress Note: A&P Assessment and Plan (1) End stage renal disease: Code(s): N18.6 - End stage renal disease Status: Chronic Assessment and Plan: DUF today HD on M/W/F follow electrolytes, volume status, and clearance (2) Wound of right foot: Code(s): S91.301A - Unspecified open wound, right foot, initial encounter Status: Chronic Assessment and Plan: chronic issue local wound care on antibiotics (3) Cellulitis: Qualifiers: Laterality: right Site of cellulitis: extremity Site of cellulitis of extremity: lower extremity Qualified Code(s): L03.115 - Cellulitis of right lower limb Code(s): L03.90 - Cellulitis, unspecified Status: Acute Assessment and Plan: on antibiotics complicated by chronic venous stasis (4) IDDM (insulin dependent diabetes mellitus): Status: Chronic Assessment and Plan: follow accuchecks on SSI (5) HTN (hypertension): Qualifiers: Hypertension type: unspecified Qualified Code(s): I10 - Essential (primary) hypertension Code(s): I10 - Essential (primary) hypertension Status: Acute Assessment and Plan: reasonable control follow hemodynamics Will continue to follow. Subjective Date/time seen: 03/28/20 11:06 Tolerating dry ultrafiltration (DUF) treatment at the time of my visit (seen on DUF at ~ 10:55AM); no acute issues or problems to report; no events overnight or earlier this AM. Exam Narrative: Exam Narrative: General: WD/WN male in NAD Heart: normal S1 and S2; no rub Lungs: clear to auscultation Abdomen: obese, nontender, nondistended, positive bowel sounds Extremities: no cyanosis or clubbing; no edema Skin: chronic stasis dermatitis with right foot dressings in place Objective Data Vital Signs Vital Signs: Vital Signs Temp Pulse Resp BP Pulse Ox 03/28/20 11:00 65 147/63 H 03/28/20 10:45 66 127/49 L 03/28/20 10:30 68 144/61 H 03/28/20 10:15 68 145/64 H 03/28/20 10:00 70 129/65 03/28/20 09:45 73 137/64 03/28/20 09:30 71 137/65 03/28/20 09:27 73 139/67 03/28/20 09:21 36.7 C 73 18 131/63 03/28/20 06:00 36.5 C 70 16 121/59 L 93 03/27/20 19:37 37.3 C 70 18 123/44 L 100 03/27/20 16:56 36.8 C 72 16 168/72 H 97 03/27/20 16:34 36.9 C 87 18 153/74 H 03/27/20 15:55 70 174/84 H 03/27/20 15:45 72 152/73 H 03/27/20 15:30 77 154/74 H 03/27/20 15:15 71 154/51 H 03/27/20 15:00 70 155/72 H 03/27/20 14:45 70 141/68 H 03/27/20 14:30 67 153/74 H 03/27/20 14:15 70 134/70 03/27/20 14:00 69 131/61 03/27/20 13:45 71 139/64 03/27/20 13:30 70 134/82 03/27/20 13:15 69 128/68 03/27/20 13:00 74 139/64 03/27/20 12:52 73 139/72 03/27/20 12:30 36.9 C 75 20 137/70 Intake/Output Intake/Output: Intake & Output 03/25/20 03/26/20 03/27/20 03/28/20 23:59 23:59 23:59 23:59 Intake Total 1740 2870 420 Output Total 1932 2475 Balance -192 395 420 Meds/Results Medications: Active Medications Generic Name Dose Route Start Last Admin Trade Name Freq PRN Reason Stop Dose Admin Acetaminophen 650 mg 03/26/20 04:33 03/27/20 00:18 Tylenol Tablet PO 650 mg Q4H PRN Administration Mild Pain (1-3) or Fever Aspirin 81 mg 03/26/20 08:00 03/27/20 08:07 Aspirin Chewable PO 81 mg DAILY@0800 [facility] Administration Atorvastatin Calcium 80 mg 03/26/20 21:00 03/27/20 20:58 Lipitor PO 80 mg HS NATHANIEL Administration Brinzolamide 1 drop 03/26/20 09:00 03/27/20 16:42 Azopt Ophth Rossi EACH EYE 1 drop BID NATHANIEL Administration Bumetanide 1 - 2 mg 03/26/20 04:36 03/27/20 08:05 Bumex Po BY MOUTH 2 mg DAILY PRN Administration Urinary Retention Clopidogrel Bisulfate 75 mg 03/26/20 09:00 03/27/20 08:04 Plavix PO 75 mg DAILY NATHANIEL Administration Dextrose
--- NOTE | 2020-03-28 12:00 | PC.NURSE ---
Patient's blood sugar was 149. Bolus rate was 0.8 and the patient self-administered an 8 unit bolus.
[2020-03-28] MEDS: IMIPENEM/CILASTATIN SODIUM 200 MG in DEXTROSE 5% 100 ML 200 ML IVPB (12:31)
[2020-03-28] MEDS: OMEGA 3 POLYUNSAT FATTY ACIDS 1 GM CAP PO (12:37)
[2020-03-28] MEDS: CLOPIDOGREL BISULFATE 75 MG TABLET PO (12:37)
[2020-03-28] MEDS: ASPIRIN 81 MG CHEWABLE TABLET PO (12:37)
[2020-03-28] MEDS: PANTOPRAZOLE 40 MG TABLET PO (12:37)
[2020-03-28] MEDS: VITAMIN B COMPLEX CAPSULE 1 CAP PO (12:37)
[2020-03-28] MEDS: CHOLECALCIFEROL 1,000 UNIT TABLET 2000 UNITS PO (12:38)
[2020-03-28] MEDS: BRINZOLAMIDE 1% OPHTH SUSP 10 ML 1 DROP EACH EYE (12:38)
[2020-03-28] MEDS: LOSARTAN POTASSIUM 100 MG TABLET PO (12:38)
[2020-03-28] MEDS: MICONAZOLE NITRATE 2% CREAM 30 GM TUBE 1 APPLIC TOPICAL (12:40)
--- NOTE | 2020-03-28 12:44 | PC.NURSE ---
Addendum entered by Theresa Talbert RN 03/28/20 13:35: Patient refused heparin and MALINI Roper is aware. Original Note: Patient's 0900 medications given late due to patient being in dialysis.
--- NOTE | 2020-03-28 13:38 | PC.NURSE ---
Patient was not given 1300 dose of home medication due to the 0900 medication being given late.
--- NOTE | 2020-03-28 13:59 | PM.DS ---
DS: Diagnosis Admitting Diagnosis Admitting Diagnosis: Venous insufficiency (chronic) (peripheral) Discharge Diagnosis (1) Cellulitis: Qualifiers: Laterality: right Site of cellulitis: extremity Site of cellulitis of extremity: lower extremity Qualified Code(s): L03.115 - Cellulitis of right lower limb Code(s): L03.90 - Cellulitis, unspecified Status: Acute Assessment and Plan: Patient presented with increased swelling, pain, redness to his lower extremities which has been going on for about 1 month. He states that he was placed on 1 week of Bactrim antibiotics with improvement of his symptoms but after discontinuing the medication his symptoms returned which brought him into the emergency room. Patient's lower extremities looks mostly like peripheral vascular disease but he does have some slight erythema to his proximal right lower extremity as well as an open wound to his dorsal right foot, which is improving. Blood cultures shows no growth at this time. Today the patient reports feeling better and having no pain to his lower extremities. Wound culture of right foot grew scant amount of Staph aureus. Plan is to discharge the patient on Bactrim for 14 days every 24 hours since he is on dialysis. Patient's leukocytosis is improving, afebrile, non tachycardic, stable oxygenation and blood pressure. The patient understands and agrees with the plan all questions answered. (2) Edema of lower leg due to peripheral venous insufficiency: Code(s): I87.2 - Venous insufficiency (chronic) (peripheral); R60.0 - Localized edema Status: Chronic Assessment and Plan: The patient appears to have chronic LE edema from peripheral vascular disease. Venous doppler U/S of RLE was negative for DVT. Will continue with dialysis and his home Bumex. Patient states at home he is on a fluid restriction for dialysis of 1 qt which he states he follows. Recommend the patient to elevate his legs while sitting down to improve his bilateral leg swelling. (3) Wound of right foot: Code(s): S91.301A - Unspecified open wound, right foot, initial encounter Status: Chronic Assessment and Plan: Chronic wound to dorsum of right foot which he has been monitoring for years and had seen [place] [facility] for in the past. Wound nurses evaluated the patient and does not feel that his right foot wound is infected and they recommend putting miconazole cream and dressing over it. Wound culture of his right foot shows scant growth of Staph aureus. Will treat with Bactrim Continue with wound nurse recommendations. (4) ESRD (end stage renal disease) on dialysis: Code(s): N18.6 - End stage renal disease; Z99.2 - Dependence on renal dialysis Status: Chronic Assessment and Plan: He follows up with Dr. Johnnie Diaz Nephrology. He has dialysis Monday/Monday/Monday and ultrafiltration on Saturdays. Patient's creatinine today improved after dialysis yesterday Cr 5.90 and BUN 34. Patient had another ultrafiltration dialysis today. He will be discharged home to continue his dialysis treatments on Monday as scheduled at his normal location. (5) Leukocytosis: Qualifiers: Leukocytosis type: unspecified Qualified Code(s): D72.829 - Elevated white blood cell count, unspecified Code(s): D72.829 - Elevated white blood cell count, unspecified Status: Chronic Assessment and Plan: The patient has had chronic leukocytosis. His prior ER visit from 01/28/2020 showed leukocytosis at 16.4, when he was here for hypoglycemia. Leukocytosis improved today is 11.4 K and a decreased to his neutrophil count. He has remained afebrile, non tachycardic, normal oxygenation, respiratory rate and blood pr
--- NOTE | 2020-03-30 07:21 | PC.NURSE ---
Urine culture is negative. Wound cx shows staph aureus. MALINI Syed aware of findings.
== END 2020-03-28 15:37 | disposition home or self-care (01) | DRG 602 ==
LOC: ANHED 03-26 00:55 → ANH3MED 03-26 01:25
PROVIDERS: Internal Medicine Nephrology; Physician Assistant; Admitting Provider Family Medicine; Emergency Provider Emergency Medicine; Visit Provider Family Medicine
DX: L03.115 Cellulitis of right lower limb (principal); N18.6 End stage renal disease; I13.2 Hypertensive heart and chronic kidney disease with heart failure and with stage 5 chronic kidney disease, or end stage renal disease; Z68.42 Body mass index [BMI] 45.0-49.9, adult; I87.2 Venous insufficiency (chronic) (peripheral); E11.22 Type 2 diabetes mellitus with diabetic chronic kidney disease; E11.42 Type 2 diabetes mellitus with diabetic polyneuropathy; E11.51 Type 2 diabetes mellitus with diabetic peripheral angiopathy without gangrene; I50.9 Heart failure, unspecified; R60.0 Localized edema; D72.829 Elevated white blood cell count, unspecified; D63.1 Anemia in chronic kidney disease; E87.5 Hyperkalemia; I25.10 Atherosclerotic heart disease of native coronary artery without angina pectoris; H40.9 Unspecified glaucoma; E78.5 Hyperlipidemia, unspecified; E03.9 Hypothyroidism, unspecified; G47.30 Sleep apnea, unspecified; B18.2 Chronic viral hepatitis C; K21.9 Gastro-esophageal reflux disease without esophagitis; E66.01 Morbid (severe) obesity due to excess calories; Z99.2 Dependence on renal dialysis; Z98.42 Cataract extraction status, left eye; Z98.41 Cataract extraction status, right eye; Z95.5 Presence of coronary angioplasty implant and graft; Z87.891 Personal history of nicotine dependence; Z79.82 Long term (current) use of aspirin
CPT/HCPCS: 36415; 71046; 73700; 80048; 80053; 80069; 80202; 81001; 83605; 85025; 85610; 85730; 86140; 86706; 87040; 87070; 87077; 87086; 87186; 87205; 87340; 93970; 96365; 96367; 96375; 96376; 99285; A9270; G0257; G0378; J0743; J1644; J1940; J2270; J3370; J7030; Q4081

== ENCOUNTER 2020-11-18 15:00 | Outpatient (RCR) | payer MEDICARE, SELFPAY ==
[2020-10-30 15:48] VITALS: PULSE 72
[2020-11-09 08:06] LABS: Glucose Point of Care 95 (65-105)
[2020-11-09 08:06] LABS: Glucose Point of Care 117 (65-105)
--- NOTE | 2020-11-16 15:00 | PCCPR ---
11/16/2020: Spoke with pt. He plans to attend on 11/18/2020.
--- NOTE | 2020-12-10 11:19 | PCCPR ---
Continued absence Message left for Evaristo to call us back regarding his plan for return.
--- NOTE | 2020-12-14 14:20 | PCCPR ---
Addendum entered by Irena Ricks RN 12/14/20 18:42: Evaristo called states he is currently in [facility]. He is not certain when he will be released. He asked we give him a call in apx 1 month and if he knows more before them on returning to rehab he will contact us. Original Note: Continued absence Evaristo left a message on our voice mail over weekend he was uncertain when he would be able to return. He voiced he may need to have another surgery however uncertain. That may be n a couple of weeks. Returned to call to discuss and to consider placing him on hold until he knows more.
--- NOTE | 2021-01-20 13:10 | PCCPR ---
fOLLOW UP: Called Evaristo, he states he has not been released yet since having surgery. He states he has an appt in 10 days?? Asked him to speak with his doctor about plans for returning to cardiac rehab and get a release if ok with it. Will follow up around February 03 if we have not heard back from him.
--- NOTE | 2021-02-03 14:06 | PCCPR ---
Called Evaristo today to follow up with his plans for return, no answer, left message.
--- NOTE | 2021-02-08 13:27 | PCCPR ---
Addendum entered by Irena Ricks RN 02/08/21 14:54: Evaristo called back and stated that he had a lot going on right now and did not forsee being able to return to rehab. Evaristo request discharge from the program. Original Note: Called Evaristo again, no answer, ask that he return our call and let us know what his plan is for returning.
== END 2020-11-18 23:59 | disposition home or self-care (01) ==
LOC: ANHCPREHAB 15:00
PROVIDERS: PCP Internal Medicine; Visit Provider Internal Medicine Cardiovascular Disease
DX: Z95.2 Presence of prosthetic heart valve (principal)
CPT/HCPCS: 93798

== ENCOUNTER → 2021-01-19 13:01 | Outpatient (CLI) | payer MEDICARE, SELFPAY ==
--- NOTE | ~2021-01-19 | US_ITS ---
EXAMINATION: US soft tissue LE RT DATE: 01/19/2021 13:34 INDICATION: Right groin abscess TECHNIQUE: Multiple grayscale and Doppler ultrasound images of the right groin were obtained. COMPARISON: None FINDINGS: 3.0 x 2.5 x 1.4 cm hypoechoic region superficial to an artery at the right groin likely representing either the common femoral or superficial femoral artery. It is unclear whether hypoechoic region repr esents solid tissue or complex fluid. There is however no significant posterior acoustic enhancement to suggest fluid. No evident internal flow within this region to suggest a pseudoaneurysm. There is n o significant posterior acoustic enhancement to more specifically suggest that this represents a flui d collection. Shadowing subcutaneous calcifications are seen more laterally at the right groin. Simil ar subcutaneous calcific a comparison seen along the lateral left thigh and at the bilateral calves o n prior CT dated 03/25/2020. IMPRESSION: 1. Nonspecific 3.0 x 2.5 x 1.4 cm hypoechoic region superficial to artery at the right groin. Differe ntial particularly given the history of prior vascular access at this site would include granulation tissue/scarring, hematoma or abscess although there is no posterior acoustic enhancement to more spec ifically suggest a fluid collection. Coincidental neoplasm either benign or malignant and would be si gnificantly less likely. Reviewed, dictated and finalized at location A. [facility] IMPRESSION: 1. Nonspecific 3.0 x 2.5 x 1.4 cm hypoechoic region superficial to artery at th e right groin. Differential particularly given the history of prior vascular ac cess at this site would include granulation tissue/scarring, hematoma or absces s although there is no posterior acoustic enhancement to more specifically sugg est a fluid collection. Coincidental neoplasm either benign or malignant and wo uld be significantly less likely.
== END ==
DX: L02.214 Cutaneous abscess of groin (principal); L03.115 Cellulitis of right lower limb
CPT/HCPCS: 76882